=== PATIENT | male | born 1990 | race African-American/Black ===

== ENCOUNTER 2019-10-14 04:06 | Emergency (ER) | payer OTHER ==
[~2019-10-14] VITALS: Ht 188 cm; Wt 90.7 kg
[~2019-10-14 04:06] MED LIST: ALBUTEROL SULF8.5 GM IH; BACTRIM DS TAB1 EACH PO; CORICIDIN HBP1 EACH PO; FLEXERIL PO; FLONASE 0.05%50 MCG NASAL; IBUPROFEN 800800 M1 PO; MOBIC15 MG PO; NAPROSYN500 MG PO; NOHOMEMEDICATIONS; NORFLEX100 MG PO; PROMETHAZINE-C120 ML PO; TRAMADOL 50 MG50 MG PO; TYLENOL COLD-F240 ML PO; VENTOLIN HFA 1818 GM INH; ZPAK PO
[2019-10-14] MEDS ORDERED: IBU400 MG PO (04:12)
[2019-10-14 05:10] VITALS: BP 139/101
[2019-10-14] MEDS ORDERED: VENTOLIN HFA 1818 GM INH (05:17)
[2019-10-14] MEDS ORDERED: DOXYCYCLINE 10100 MG PO (05:26)
== END 2019-10-14 05:47 | disposition home or self-care (01) ==
LOC: ER 04:06
DX: J06.9 Acute upper respiratory infection, unspecified (principal); J20.9 Acute bronchitis, unspecified; R06.00 Dyspnea, unspecified; F12.10 Cannabis abuse, uncomplicated; F17.210 Nicotine dependence, cigarettes, uncomplicated; Z90.89 Acquired absence of other organs